=== PATIENT | female | born 1955 | race Caucasian/White ===

== ENCOUNTER 2021-09-08 01:49 | Inpatient (IN) | payer MEDICARE ==
[~2021-09-08] VITALS: Ht 170.2 cm; Wt 59.0 kg
[~2021-09-08 01:49] MED LIST: BACTRIM DS TAB1 EACH PO; PYRIDIUM100 MG PO; ZPAK PO
[2021-09-08 02:43] LABS: BASOPHIL 0.3 % (0-2); EOSINOPHIL 0.6 % (0-7); HCT 41.3 % (37.0-47.0); HGB 13.4 g/dl (12.5-16.0); LYMPHOCYTE 17.6 % (15-48); MCH 27.4 pg (25.0-31.0); MCHC 32.4 g/dL (32.0-36.0); MCV 84.5 fL (78.0-100.0); MONOCYTE 6.9 % (0-12); NEUTROPHIL 74.2 % (41-80); NRBC 0; PLT 280 K/uL (150-400); RBC 4.89 M/uL (4.20-5.40); RDW 14.1 % (11.5-14.0); WBC 14.1 K/uL (4.0-10.5)
[2021-09-08 02:56] LABS: ALBUMIN 3.8 g/dL (3.4-5.0); BILIRUBIN - TOTAL 0.5 mg/dL (0.2-1.0); BUN/CREAT RATIO (CALC) 11.8 RATIO; CREATININE 0.76 mg/dL (0.51-0.95); GLOBULIN (CALCULATION) 3.3 g/dL; POTASSIUM 4.1 mmol/L (3.5-5.1); TOTAL PROTEIN 7.1 g/dL (6.4-8.2)
[2021-09-08 03:07] LABS: LACTIC ACID 0.7 mmol/L (0.4-1.9)
[2021-09-08 03:29] LABS: BILIRUBIN NEGATIVE (NEGATIVE); BLOOD TRACE-INTACT Ery/uL (NEGATIVE); CLARITY CLEAR (CLEAR); GLUCOSE (U) NORMAL (NORMAL); LEUKOCYTES NEGATIVE Leu/uL (NEGATIVE); NITRITE NEGATIVE (NEGATIVE); PROTEIN NEGATIVE (NEGATIVE); SPECIFIC GRAVITY <=1.005 (1.001-1.030); UROBILINOGEN 0.2 mg/dL (0.2-1.0)
[2021-09-08 03:30] LABS: COLOR STRAW (YELLOW)
[2021-09-08 03:37] LABS: URINARY RBC RARE
[2021-09-08] MEDS ORDERED: 8 HOUR650 MG PO (18:11)
--- NOTE | 2021-09-09 00:02 | NUR ---
IV INFILTRATED IN LEFT AC. DISCONTINUED LEFT AC IV AND RESTARTED 20G LEFT HAND X1 ATTEMPT. PT TOLERATES WELL. FLUSHED WITH 10ML NORMAL SALINE WITHOUT COMPLICATION. PT'S LINEN BECAME SOILDED WHEN INITIAL IV INFILTRATED. FULL LINEN CHANGE AT THIS TIME. CALL LIGHT IN REACH, LIGHTS TURNED DOWN, PT DENIES FURTHER NEEDS.
[2021-09-09 06:36] LABS: BASOPHIL 0.2 % (0-2); EOSINOPHIL 0 % (0-7); HCT 38.7 % (37.0-47.0); HGB 12.8 g/dl (12.5-16.0); LYMPHOCYTE 4.8 % (15-48); MCH 27.9 pg (25.0-31.0); MCHC 33.1 g/dL (32.0-36.0); MCV 84.3 fL (78.0-100.0); MONOCYTE 3.1 % (0-12); NEUTROPHIL 91.6 % (41-80); NRBC 0; PLT 230 K/uL (150-400); RBC 4.59 M/uL (4.20-5.40); RDW 13.8 % (11.5-14.0); WBC 16.6 K/uL (4.0-10.5)
[2021-09-09 06:54] LABS: BUN/CREAT RATIO (CALC) 13.9 RATIO; C-REACTIVE PROTEIN 12.1 mg/dL (<=0.90); CREATININE 0.72 mg/dL (0.51-0.95); POTASSIUM 3.5 mmol/L (3.5-5.1)
[2021-09-10 04:40] LABS: BASOPHIL 0.4 % (0-2); EOSINOPHIL 0.4 % (0-7); HCT 34.8 % (37.0-47.0); HGB 11.3 g/dl (12.5-16.0); LYMPHOCYTE 11.8 % (15-48); MCH 27.2 pg (25.0-31.0); MCHC 32.5 g/dL (32.0-36.0); MCV 83.9 fL (78.0-100.0); MONOCYTE 5.8 % (0-12); MPV 9.8 fL (6.0-9.5); NEUTROPHIL 81.1 % (41-80); NRBC 0; PLT 198 K/uL (150-400); RBC 4.15 M/uL (4.20-5.40); RDW 13.7 % (11.5-14.0); WBC 15.5 K/uL (4.0-10.5)
[2021-09-10 05:01] LABS: BUN/CREAT RATIO (CALC) 10.3 RATIO; CREATININE 0.87 mg/dL (0.51-0.95); POTASSIUM 3.5 mmol/L (3.5-5.1)
[2021-09-11 04:02] LABS: BASOPHIL 0.5 % (0-2); EOSINOPHIL 1.4 % (0-7); HCT 35.1 % (37.0-47.0); HGB 11.4 g/dl (12.5-16.0); LYMPHOCYTE 11.8 % (15-48); MCH 27.3 pg (25.0-31.0); MCHC 32.5 g/dL (32.0-36.0); MONOCYTE 6.2 % (0-12); MPV 9.9 fL (6.0-9.5); NEUTROPHIL 79.5 % (41-80); NRBC 0; PLT 218 K/uL (150-400); RBC 4.18 M/uL (4.20-5.40); RDW 13.6 % (11.5-14.0); WBC 11.8 K/uL (4.0-10.5)
[2021-09-11 04:23] LABS: BUN 10 mg/dL (7-18); BUN/CREAT RATIO (CALC) 12.8 RATIO; C-REACTIVE PROTEIN >18.00 mg/dL (<=0.90); CHLORIDE 104 mmol/L (98-107); CO2 (BICARBONATE) 24 mmol/L (21-32); CREATININE 0.78 mg/dL (0.51-0.95); GLUCOSE 82 mg/dL (74-106); POTASSIUM 3.4 mmol/L (3.5-5.1)
[2021-09-12 06:27] LABS: BASOPHIL 0.5 % (0-2); EOSINOPHIL 2.4 % (0-7); HCT 34.5 % (37.0-47.0); HGB 11.5 g/dl (12.5-16.0); MCH 27.8 pg (25.0-31.0); MCHC 33.3 g/dL (32.0-36.0); MCV 83.3 fL (78.0-100.0); MONOCYTE 8.3 % (0-12); MPV 9.9 fL (6.0-9.5); NEUTROPHIL 71.3 % (41-80); NRBC 0; PLT 254 K/uL (150-400); RBC 4.14 M/uL (4.20-5.40); RDW 13.3 % (11.5-14.0); WBC 9.2 K/uL (4.0-10.5)
[2021-09-12 06:48] LABS: BUN/CREAT RATIO (CALC) 12.7 RATIO; CREATININE 0.71 mg/dL (0.51-0.95); POTASSIUM 3.6 mmol/L (3.5-5.1)
[2021-09-12] MEDS ORDERED: CIPRO500 MG PO (13:49)
[2021-09-12] MEDS ORDERED: METRONIDAZOLE500 MG PO (13:49)
--- NOTE | 2021-09-12 14:37 | NUR ---
09/12/21 Dr. Rosas requested a social work consult r/t financial concerns. Ms. Mcintyre lives at home with her spouse. She is independent. 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 - Ms. Mcintyre has a PCP, Myrna Mendez, in [place]. She reports to be able to afford her medications. She is supported by [facility] and . Ms. Mcintyre has Medicare A only. SHe was assisted in contacting [facility] to discuss the reason she is not receiving Meicaid as well. Ms. Mcintyre was also provided with the telephone # to Medicaid if [facility] was unable to help her. She was given a list of financial community resources.
== END 2021-09-12 16:00 | disposition home or self-care (01) | DRG 385 ==
LOC: FER 01:49 → FOFB 18:06 → FMS 18:07
PROVIDERS: Emergency Medicine Emergency Medical Services; ADMIT Family Medicine
DX: K50.00 Crohn's disease of small intestine without complications (principal); K35.32 Acute appendicitis with perforation, localized peritonitis, and gangrene, without abscess; N17.9 Acute kidney failure, unspecified; Z20.822 Contact with and (suspected) exposure to COVID-19; J44.9 Chronic obstructive pulmonary disease, unspecified; M19.90 Unspecified osteoarthritis, unspecified site; F17.200 Nicotine dependence, unspecified, uncomplicated; Z88.0 Allergy status to penicillin; Z88.8 Allergy status to other drugs, medicaments and biological substances; Z98.890 Other specified postprocedural states
CPT/HCPCS: 36415; 80048; 80053; 81001; 83605; 83690; 84145; 85025; 86140; J0744; J1170; J1650; J1885; J2060; J2270; J2405; J2543; J7030; Q9967; U0002